=== PATIENT | female | born 1960 | race Caucasian/White ===

== ENCOUNTER 2021-08-08 08:15 | Outpatient (REF) | payer OTHER, SELFPAY ==
--- NOTE | ~2021-08-08 | MM_ITS ---
EXAMINATION: MM SCREENING DIGITAL BREAST TOMOSYNTHESIS, BILATERAL CLINICAL INFORMATION: Screening. Asymptomatic. The lifetime risk of breast cancer based on the Tyrer-Cuzick Model is 6%. COMPARISON: Mammography: 09/01/2016, 01/20/2013 TECHNIQUE: Digital breast tomosynthesis is performed in both the craniocaudal and mediolateral oblique views along with computer-aided detection (CAD). Synthesized 2D images are generated from the tomosynthesis. FINDINGS: There are scattered areas of fibroglandular density (ACR BI-RADS breast composition Category b). There are no significant masses, abnormal calcifications, or other abnormalities. Parenchymal pattern is similar to prior studies. Again, there is biopsy clip marker mid 9:00 right breast. Dermal lesions are again seen overlying the upper left breast and lower inner right breast. No significant changes. MM/MM tomosynthesis screening BI IMPRESSION: No mammographic evidence of malignancy. ASSESSMENT: BI-RADS 2: Benign RECOMMENDATION: Routine annual mammography screening. This patient's information was entered into a reminder system with a target due date for their next mammogram.
== END 2021-08-08 08:16 | disposition home or self-care (01) ==
LOC: HO.MAMMO 08:15
PROVIDERS: PCP Internal Medicine; Visit Provider Internal Medicine
DX: Z12.31 Encounter for screening mammogram for malignant neoplasm of breast (principal)
CPT/HCPCS: 77063; 77067

== ENCOUNTER 2025-01-23 07:45 | Outpatient (REF) | payer MEDICARE, SELFPAY ==
[2025-01-23 09:04] LABS: MANUAL DIFF FLAG NO
[2025-01-23 10:02] LABS: Hematocrit 41.6 % (37.0-47.0); Hemoglobin 13.7 g/dl (12.0-16.0); Imm Gran Abs Auto 0.01 X10*3/uL (0.00-0.03); Imm Gran Pct Auto 0.2 % (0.0-0.4); Lymphocytes Absolute Auto 1.5 X10*3/uL (1.2-4.9); Mean Corpuscular HGB Conc 32.9 g/dl (31.0-35.0); Mean Corpuscular Hemoglobin 31.8 pg (27.0-33.0); Mean Corpuscular Volume 96.5 fL (80.0-98.0); NRBC Abs Auto 0.000 X10*3/uL (0.0-0.012); NRBC Pct Auto 0.0 /100WBC (0.0-0.2); Platelet Count 249 X10*3/uL (160-400); Red Blood Count 4.31 X10*6/uL (4.20-5.50); White Blood Count 4.5 X10*3/uL (4.8-10.8)
[2025-01-23 10:36] LABS: Appearance Urine Clear; Glucose Urine UA Negative (Negative); PH 6.5 (5.0-9.0); Specific Gravity - Urine 1.025 (1.005-1.025)
[2025-01-23 11:37] LABS: Alanine Aminotransferase 22 U/L (0-31); Albumin Level 4.6 g/dL (3.5-5.0); Alkaline Phosphatase 69 U/L (39-117); Anion Gap 12 (12-20); Aspartate Amino Transferase 23 U/L (5-31); Blood Urea Nitrogen 15 mg/dL (9-16); Calcium 9.5 mg/dL (8.4-10.2); Carbon Dioxide 27 mmol/L (22-29); Chloride 108 mmol/L (96-108); Cholesterol 295 mg/dL (<200); Estimated Glomerular Filt Rate > 60; HDL Cholesterol 60 mg/dL (>40); Potassium 4.4 mmol/L (3.3-5.1); Sodium 143 mmol/L (135-145); Total Protein 6.8 g/dL (6.5-8.0); Triglycerides 172 mg/dL (<150)
[2025-01-23 12:02] LABS: Folate 14.4 ng/mL (> or = 4.0); Vitamin B12 396 pg/mL (200-900)
== END 2025-01-23 07:46 | disposition home or self-care (01) ==
LOC: HO.LAB 07:45
PROVIDERS: PCP Internal Medicine
DX: Z00.00 Encounter for general adult medical examination without abnormal findings (principal); I10 Essential (primary) hypertension; E78.5 Hyperlipidemia, unspecified; F41.9 Anxiety disorder, unspecified; E78.00 Pure hypercholesterolemia, unspecified; F33.1 Major depressive disorder, recurrent, moderate; K21.9 Gastro-esophageal reflux disease without esophagitis; R35.89 Other polyuria; Z78.0 Asymptomatic menopausal state; Z13.0 Encounter for screening for diseases of the blood and blood-forming organs and certain disorders involving the immune mechanism; Z13.1 Encounter for screening for diabetes mellitus; Z13.21 Encounter for screening for nutritional disorder; Z13.29 Encounter for screening for other suspected endocrine disorder; Z79.899 Other long term (current) drug therapy; Z86.73 Personal history of transient ischemic attack (TIA), and cerebral infarction without residual deficits
CPT/HCPCS: 36415; 80053; 80061; 81003; 82306; 82607; 82746; 83036; 84443; 85025; 96127; 99202

== ENCOUNTER 2025-01-23 07:45 | Outpatient (AMB) | payer MEDICARE, SELFPAY ==
--- OUTSIDE RECORDS SUMMARY | 2025-01-23 07:49 | XMS_ITS | Clinical Summary ---
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 Not on yuridia e 06/25/2022 Are you concerned about learning? Not on file 06/25/2022 No 06/25/2022 No 06/25/2022 Digital Access Answer Date Recorded No 07/24/2022 No 07/24/2022 No 07/24/2022 Reliable internet access at home? Not on file 07/24/2022 Device with a working camera? Not on file Comments Unknown Sex and Gender Information Value Date Recorded Sex Assigned at Not on file Legal Sex Female 9:49 PM EDT Gender Identity Not on file Sexual Orientation Not on file Last Filed Vital Signs Vital Sign Reading Time Taken Comments Blood Pressure 122/80 07/21/2011 9:59 AM EDT Pulse 60 07/21/2011 9:59 AM EDT Temperature 36.8 C (98.3 F) 07/21/2011 9:59 AM EDT Respiratory Rate - - Oxygen Saturation - - Inhaled Oxygen Concentration - - Weight 81.3 kg (179 lb 3.2 oz) 07/21/2011 9:59 A M EDT Height 160 cm (5' 3 ) 07/21/2011 9:59 AM EDT Body Mass Index 31.74 07/21/2011 9:59 AM EDT Plan of Treatment Health Maintenance Due Date Last Done Comments LIPID PANEL 1959 DEPRESSION SCREENING 1971 SMOKING Hx and SMOKELESS TOB ACCO SCREENING 05/30/1972 HEPATITIS C SCREENING 05/30/1977 HIV ONE-TIME SCREENING (18-6 5 YEARS) 05/30/1977 MAMMOGRAM 1999 COLOGUARD 05/30/2004 COLONOSCOPY 05/30/2004 COLORECTAL CANCER SCREENING 05/30/2004 FIT TEST 05/30/2004 FOBT 05/30/2004 SIGMOIDOSCOPY 05/30/2004 VIRTUAL COLONOSCOPY 05/30/2004 PNEUMOCOCCAL VACCINES (50+ y ears) (1 of 1 - PCV) 05/30/2009 ZOSTER VACCINES (1 of 2) 05/30/2009 OSTEOPOROSIS SCREENING INITI AL (ONE-TIME) 05/30/2024 INFLUENZA VACCINE (#1) 2024 12/25/2018 COVID-19 VACCINE (1 - 2024-2 6 season) 2024 Adult Td,Tdap Booster 02/05/2025 02/05/2015 RSV VACCINE (1 - 1-dose 75+ series) 05/30/2034 HEPATITIS A VACCINES Aged Out No long er eligible based on patient's age to complete this topic HIB VACCINES Aged Out No longer eligi ble based on patient's age to complete this topic MENINGOCOCCAL VACCINES (ACWY) Aged Out No longer eligible based on patient's age to complete this topic MENINGOCOCCAL VACCINES (B) Aged Out N o longer eligible based on patient's age to complete this topic Medical Devices Not on file Insurance [address] [place], [place] [address] [address] [facility] [employer] [facility] [employer]he[employer] [facility]HE[facility] Oz SonotekMAIMONIDES MEDICAL CENTERO [facility]JO[facility] [employer] [facility] Care Teams Felled Seam Operator Relationship Specialty Start Date End Date Rachel Morales MD [address] [place] [id number] PCP - General Internal Medicine 11/08/18 Additional Source Comments The information contained in this document represents components of the legal health record. It is not the complete legal health record.[facility]
--- OUTSIDE RECORDS SUMMARY | 2025-01-23 07:49 | XMS_ITS | Clinical Summary ---
Author Organization [employer] Address [address] [facility] [address] [place] [address] Care Team Providers Care Belt Sander Stone Name Role Phone Unavailable Primary Care Provider Unavailabl e Allergies Active Allergy Reactions Criticality Noted Date Comments Codeine 07/19/2022 Penicillins 07/19/2022 Sulfa Antibiotics 07/19/2022 Medications LORazepam (Ativan) 0.5 MG tablet Take 0.25 mg by mouth 2 times daily. 07/12/2022 Active omeprazole (PriLOSEC) [address] capsule Take 40 mg by mouth in the morning. 06/28/2022 Active buPROPion SR (Wellbutrin SR) 150 MG 12 hr tablet Take 150 mg by mouth 2 times daily. 05/04/2022 Active citalopram (CeleXA) 20 MG tablet Take 20 mg by mouth in the morning. 04/27/2022 Active atorvastatin (Lipitor) 40 MG tablet Take 40 mg by mouth in the morning. 07/10/2022 Active metoprolol succinate XL (Toprol-XL) 50 MG 24 hr tablet Take 50 mg by mouth in the morning. 05/04/2022 Active lisinopril 20 MG tablet Take by mouth in the morning. Active Social History Tobacco Use Types Packs/Day Years Used Date Smoking Tobacco: Never Smokeless Tobacco: Never Tobacco Cessation:Counseling Given: Not Answered Comments Unknown Sex and Gender Information Value Date Recorded Sex Assigned at Female 07/08/2022 10:28 AM EDT Legal Sex Female 10:24 AM EDT Gender Identity Female 07/08/2022 10:28 AM EDT Sexual Orientation Straight 08/04/2022 5: 59 PM EDT Last Filed Vital Signs Vital Sign Reading Time Taken Comments Blood Pressure 118/72 07/19/2022 10:02 AM EDT Pulse 65 07/19/2022 10:02 AM EDT Temperature - - Respiratory Rate - - Oxygen Saturation - - Inhaled Oxygen Concentration - - Weight - - Height - - Body Mass Index - - Plan of Treatment Health Maintenance Due Date Last Done Comments CT Colonography 1959 Colonoscopy 1959 Colorectal Cancer Screening 1959 Dental Prophylaxis 1959 Dental X-Ray: Bitewings 1959 Depression Screening 1959 FIT DNA/Cologuard 1959 FIT 1959 FOBT 1959 SDOH Screening 1959 Sigmoidoscopy 1959 Alcohol/Substance Use Screening 1971 Hepatitis C Screening 05/30/1977 DTaP/Tdap/Td Vaccines (1 - Tdap) 05/30/1978 Pap Smear 05/30/1980 Cervical Cancer Screening 05/30/1989 HPV/Cotest 05/30/1989 Mammogram 1999 Pneumococcal Vaccine: 50+ Years (1 of 1 - PCV) 05/30/2009 Dental Oral Exam 01/20/2023 07/19/2022 Tobacco Screening 07/20/2023 07/19/2022 COVID-19 Vaccine (2 - 2024-2 6 season) 2024 03/30/2021 Influenza Vaccine (#1) 2024 11/20/2019 Dental X-Ray: Full Mouth 07/20/2025 07/19/2022 RSV Patients and Patients Aged 60 years or older (1 - 1-dose 75+ series) 05/30/2034 Zoster Vaccines Completed 01/28/2020, 11/20/2019 HIB Vaccines Aged Out No longer eligi ble based on patient's age to complete this topic HPV Vaccines Aged Out No longer eligi ble based on patient's age to complete this topic Hepatitis A Vaccines Aged Out No long er eligible based on patient's age to complete this topic Hepatitis B Vaccines Aged Out No long er eligible based on patient's age to complete this topic IPV Vaccines Aged Out No longer eligi ble based on patient's age to complete this topic Meningococcal B Vaccine Aged Out No l onger eligible based on patient's age to complete this topic Meningococcal Vaccine Aged Out No kelsey emani eligible based on patient's age to complete this topic RSV under 20 months Aged Out No longe r eligible based on patient's age to complete this topic Rotavirus Vaccines Aged Out No longer eligible based on patient's age to complete this topic Procedures Procedure Name Priority Date/Time Associated Diagnosis Comments PANORAMIC RADIOGRAPHIC IMAGE Routine 07/19/2022 10:00 AM EDT Encounter for dental examination COMPREHENSIVE ORAL EVALUATION - NEW OR ESTABLISHED PATIENT Routine 07/19/2022 10:00 AM EDT from Last 3 Months or Most Recently Relevant to Health [place] [address] [facility] [place] [address]
--- NOTE | 2025-01-23 07:59 | MHC.PC.OV ---
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 Allergies Courtney Allergy (Unknown, Verified 01/23/25 08:12) increased blood pressure codeine (CODEINE) Allergy (Unknown, Verified 01/23/25 08:12) UNKNOWN penicillin V Allergy (Unknown, Verified 01/23/25 08:12) rash, rash/breathing problems Penicillins (PENICILLINS) Allergy (Unknown, Verified 01/23/25 08:12) UNKNOWN Sulfa (Sulfonamide Antibiotics) (SULFA (SULFONAMIDE ANTIBIOTICS)) Allergy (Unknown, Verified 01/23/25 08:12) UNKNOWN, redness escitalopram (Lexapro) Adverse Reaction (Unknown, Verified 01/23/25 08:12) increased blood pressure sulfur Adverse Reaction (Unknown, Verified 01/23/25 08:12) rash CODINE Allergy (Unknown, Uncoded 01/23/25 08:12) redness Codeine Sulfate Adverse Reaction (Unknown, Uncoded 01/23/25 08:12) hives Medication List - Last Reconciled 01/23/25 by Denise Arredondo PA-C aspirin 81 mg PO DAILY cranberry fruit concentrate 450 mg PO DAILY fsmtsnns-mlt-tpsn-FA-vit K-lut 8 mg iron-400 mcg-50 mcg (Centrum Silver Women) 1 tab PO DAILY Tobacco use date assessed: 01/23/25 Fall risk assessment: 2 + Falls in past year Last assessed Fall Risk: 01/23/25 Dental Screening Dental Screen Date: 01/23/25 Did you have a dental visit in the last 12 months?: Yes Did you have a dental problem in the last 6 months where you did not have access to dental care?: No Was dental information given to patient?: 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 Presenting as a new patient to establish care and for medication management. The patient has not seen a provider in about a year due to an insurance change and has not been taking prescribed medications for hypertension, hyperlipidemia, anxiety, and depression during this time. The patient has a history of a stroke approximately 15 years ago, in 2009. The patient reports a significant history of anxiety and depression, stating the patient is not doing well off the medications. The patient has been to the hospital three times in the last year and a half for anxiety, where lorazepam was administered. There is a history of three suicide attempts, with the last one occurring five years ago; the patient denies recent suicidal ideation but reports feeling shaky. mammo: ordered colonoscopy: Cologuard ordered pap smear: referral to maternity nurse [facility] Medical History Suicide attempt Surgical History S/P cholecystectomy Family History Father Substance abuse in family Leukemia Mother No problems noted. Paternal Grandfather Leukemia Other Depression with anxiety High blood pressure High cholesterol Stroke Social History Housing: House Patient Tobacco Use Status: Never used Tobacco e-Cigarette/Vaping Use: Never Used Second Hand Smoke Exposure: No service: No Current occupational status: retired Cognitive needs: No Hearing needs: No Vision needs: No Female Reproductive History Menstrual control method: none Total pregnancies: 2 History of abnormal pap smear: No History of abnormal mammogram: No Questionnaire PHQ-9 Over the last 2 weeks, how often have you been bothered by any of the following problems? 1. Little interest or pleasure in doing things: several days 2. Feeling down, depressed, or hopeless: several days 3. Trouble falling or staying asleep, or sleeping too much: several days 4. Feeling tired or having little energy: several days 5. Poor appetite or overeating: several days 6. Feeling bad about yourself - or that you are a failure or have let yourself or your family down: several days 7. Trouble concentrating on things, such as reading the newspaper or watching television: more than half the days 8. Moving or speaking so slowly that other people could have noticed. Or the opposite - being so fidgety or restless that you have been moving around a lot more than usual: not at all 9. Thoughts that you would be better off or of hurting yourself in some way: not at all Total score: 8 Depression Screening Interpretation: Positive Depression Screening Follow-up: Existing condition and New Medication prescribed Depression Screening Done: Yes 38526 - PHQ-9 Billing: Yes Source: Developed by Drs. Jorge Whitten, Stephanie Riley, Tesfaye Pike and colleagues, with an educational brooke from [employer]. Thrive Questionnaire Date Thrive assessed: 01/23/25 I am a: Patient What is your living situation today?: I have a steady place to live Within the past 12 months, did the food you bought not last and you didn't have the money to get more?: Often true Within the past 12 months, did you worry whether your food would run out before you got money to buy more?: Sometimes True Do you have trouble paying for medicines?: No Do you have trouble getting transportation to medical appointments?: No Do you have trouble paying your heating and electricity bill?: Yes Do you have trouble taking care of your child, family member or friend?: I choose not to answer this question Do you have trouble with day-to-day activities such as bathing, preparing meals, shopping, managing finances, etc.?: No Are you currently unemployed and looking for a job?: No Are you interested in more education?: No Please select the resources that you would like help with: None Currently or been in a relationship where the following occur: I choose not to answer THRIVE Score: 3 AUDIT C Alcohol Use Questionnaire (AUDIT-C) 1. How often do you have a drink containing alcohol?: Never 3. How often do you have six or more drinks on one occasion?: Never Total Score: 0 CHERYLE-7 AMB Questionnaire CHERYLE-7 Date CHERYLE - 7 assessed: 01/23/25 Feeling nervous, anxious, or on edge: 1 = Several days Not being able to stop or control worryin = Several days Worrying too much about different things: 1 = Several days Trouble relaxin = Several days Being so restless that it is hard to sit still: 2 = More than half the days Becoming easily annoyed or irritable: 1 = Several days Feeling afraid as if something awful might happen: 0 = Not at all Total CHERYLE-7 score (0-4 normal; 5-9 mild; 10-14 moderate; 15-21 severe): 7 Source: Developed by Drs. Jorge Whitten, Stephanie Riley, Tesfaye Pike and colleagues, with an educational brooke from [employer]. CHERYLE-7 Assessment Billing CHERYLE-7 Assessment Tool: CHERYLE-7 Assessment 81680 Review of Systems Const Denies body aches, Denies chills, Denies fever(s), Denies headache(s) and Denies poor appetite Eyes Reports no additional complaints ENT Denies dizziness and Denies headache(s) Card Reports chest pain (w/ anxiety ), Denies edema, Denies lightheadedness and Denies dyspnea Resp Denies dyspnea GI Denies abdominal pain, Reports heartburn, Denies nausea and Denies vomiting Reports no additional complaints Musc Reports no additional complaints and Denies abnormal gait Skin/Breast Reports system reviewed and no additional complaints, except as documented Neuro Denies abnormal gait, Denies dizziness and Denies headache(s) Psych Reports no additional complaints Physical exam (Primary Care) Vital Signs: Last Vital Signs Temp 98.1 F 01/23/25 08:02 Pulse 76 01/23/25 08:02 BP 130/80 01/23/25 08:02 Pulse Ox 97 01/23/25 08:02 Oxygen Delivery Method Room Air 01/23/25 08:02 BMI result Body Mass Index 29.6 Tobacco/Smoking Status: Tobacco use Status Tobacco use date assessed 01/23/25 01/23/25 08:11 Patient Tobacco Use Status Never used Tobacco 01/23/25 08:11 e-Cigarette/Vaping Use Never Used 01/23/25 08:11 PHQ-9: PHQ-9 Score PHQ-9: Total score 8 01/23/25 08:11 Depression Screening Interpretation: Positive Depression Screening Follow-up: Existing condition and New Medication prescribed Thrive Assessment: Date of Thrive Assessment Date Thrive assessed 01/23/25 01/23/25 08:11 Currently or been in a relationship where the following occur: I choose not to answer Const General: cooperative, healthy appearing, comfortable and no acute distress Orientation/consciousness: patient oriented x3 HENMT Head: Yes normocephalic Ears: hearing grossly normal bilaterally General nose exam: Normal external nose present Eyes General: appearance normal, both eyes and all related structures Conjunctivae: conjunctivae normal Neck Neck: Yes full ROM and Yes no lymphadenopathy Resp Effort & Inspection: normal respiratory effort Auscultation: clear to auscultation bilaterally, no crackles, no rales, no rhonchi and no wheezes Cardio Rate: regular rate Rhythm: regular rhythm Skin General skin exam: no rashes or lesions noted Neuro General: patient oriented x3 Gait exam (Neuro): Normal gait present Extrem General: Yes normal to inspection, Yes full ROM and No edema Psych Affect: normal affect Attitude: cooperative Insight: Good insight present (Psych) Judgement: Good judgement present (Psych) Coding Level of Care Code New Pt Level 4 (05138) Diagnoses CVA (cerebral vascular accident) I63.9 Primary hypertension I10 Hypertension type: primary hypertension Pure hypercholesterolemia E78.00 Hyperlipidemia type: pure hypercholesterolemia Moderate episode of recurrent major depressive disorder F33.1 Depression Type: major depressive disorder Major depression recurrence: recurrent Active/Remission status: currently active Major depression episode severity: moderate Anxiety F41.9 Gastroesophageal reflux disease without esophagitis K21.9 Esophagitis presence: without esophagitis Additional Codes PHQ-9 - 97326 - PHQ-9 Billing: Yes ([id number]) CHERYLE-7 Assessment Billing - CHERYLE-7 Assessment Tool: CHERYLE-7 Assessment 50395 ([id number]) Assessment & Plan Assessment & Plan (1) CVA (cerebral vascular accident): Comment: 2009 Code(s): I63.9 - Cerebral infarction, unspecified Category: Medical Plan: The patient has a history of a stroke in 2009. Management will focus on controlling blood pressure, cholesterol, and blood sugar to prevent recurrence. The patient reports being discharged from neurological follow-up. (2) Hypertension: Code(s): I10 - Essential (primary) hypertension Category: Medical Qualifiers: Hypertension type: primary hypertension Qualified Code(s): I10 - Essential (primary) hypertension Plan: Patient previously on Lisinopril 20mg and Metoprolol 25mg. Her blood pressure at home fluctuates between 130s-145 plan to restart on Metoprolol at this time and hold Lisinopril. She will continue to monitor blood pressure at home and if exceeds goal of 130/80 to reach out to the office. Avoid salt intake and encourage healthy diet and regular exercise. (3) Hyperlipidemia: Code(s): E78.5 - Hyperlipidemia, unspecified Category: Medical Qualifiers: Hyperlipidemia type: pure hypercholesterolemia Qualified Code(s): E78.00 - Pure hypercholesterolemia, unspecified Plan: Avoid foods that are high in cholesterol such as red meat, fried foods, eggs and baked goods. Triglyceride goal of less than 150 and LDL goal of less than 70. Previously on Atorvastatin 40mg s/p CVA. Plan to obtain blood work and restart on medication. (4) Depression: Code(s): F32.A - Depression, unspecified Category: Medical Qualifiers: Depression Type: major depressive disorder Major depression recurrence: recurrent Active/Remission status: currently active Major depression episode severity: moderate Qualified Code(s): F33.1 - Major depressive disorder, recurrent, moderate Plan: The patient feels unwell off of psychiatric medications and will restart them. The plan is to restart citalopram and bupropion (Wellbutrin) with a spaced-out tapering schedule to minimize side effects. The patient will start citalopram 20 mg by taking half a tablet (10 mg) for one week, then increasing to the full 20 mg tablet. After three weeks on citalopram, the patient will start Wellbutrin on week 4. A 30-day supply of lorazepam will be prescribed for as-needed use during the transition back onto daily medications. Information on counseling services and mental health resources was provided. (5) Anxiety: Code(s): F41.9 - Anxiety disorder, unspecified Category: Medical Plan: See above (6) GERD (gastroesophageal reflux disease): Code(s): K21.9 - Gastro-esophageal reflux disease without esophagitis Category: Medical Qualifiers: Esophagitis presence: without esophagitis Qualified Code(s): K21.9 - Gastro-esophageal reflux disease without esophagitis Plan: Avoid trigger foods such as citrus, tomato products, soda, caffeine, spicy foods and other foods that may be irritating to your stomach. Avoid laying flat 3-4 hours after eating and elevate the head of the bed 30 degrees to prevent acid from moving into the esophagus. Plan to restart on omeprazole Plan I had a detailed discussion with the patient about establishing care after a year-long gap. I explained the plan to restart medications for hypertension, hyperlipidemia, anxiety, depression, and acid reflux. I outlined the specific tapering schedule for restarting citalopram and Wellbutrin to minimize potential side effects, and the patient agreed to this plan. I reviewed the necessary health screenings, including a mammogram, bone density scan, and colon cancer screening with Cologuard, and the patient opted for the Cologuard test. I advised that the patient will receive calls to schedule these appointments and to verify the address for the Cologuard kit. This note was constructed using voice recognition software. While every effort has been made to ensure accuracy and restoration technician, still areas may have been included sometimes these areas may affect the content or meeting of the given symptoms. Total time spent caring for the patient today was 30 minutes. This includes time spent before the visit reviewing the chart, time spent during the visit, and time spent after the visit and documentation. Patient was informed and verbally consented to the use of an ambient scribe for clinic note documentation during this visit. Orders: Orders MM tomosynthesis screening BI Today Z12.31 - Encounter for screening mammogram for malignant neoplasm of breast TSH reflex Free T4 Today Z13.29 - Encounter for screening for other suspected endocrine disorder Vitamin B12 and Folate Today Z13.21 - Encounter for screening for nutritional disorder Lipid Panel Today E78.00 - Pure hypercholesterolemia, unspecified Complete Blood Count Auto Diff Today Z13.0 - Encounter for screening for diseases of the blood and blood-forming organs and certain disorders involving the immune mechanism Hemoglobin A1c Today Z13.1 - Encounter for screening for diabetes mellitus UA CC w/rflx Micro + Cult Today R35.89 - Other polyuria XR DEXA axial skeleton Today Z78.0 - Asymptomatic menopausal state Vitamin D 25-OH Total Today Z13.21 - Encounter for screening for nutritional disorder Comprehensive Met. Panel Today Z00.00 - Encounter for general adult medical examination without abnormal findings Referrals FUR POINTER Referral Z12.4 - Encounter for screening for malignant neoplasm of cervix Cologuard Test Z12.11 - Encounter for screening for malignant neoplasm of colon, Z12.12 - Encounter for screening for malignant neoplasm of rectum Medications: New atorvastatin (Lipitor) 40 mg PO DAILY 90 tabs 0RF metoprolol succinate ER 25 mg PO DAILY 90 tabs 0RF omeprazole 40 mg PO DAILY 90 caps 0RF lorazepam 0.5 mg PO DAILY PRN 28 tabs 0RF anxiety bupropion HCl SR (Wellbutrin SR) 150 mg PO QAM 90 tabs 0RF citalopram 20 mg PO DAILY 90 tabs 0RF
[2025-01-23 08:02] VITALS: BP 130/80; PULSE 76; TEMP 36.7; O2SAT 97; BMI 29.6
== END 2025-01-23 08:43 | disposition home or self-care (01) ==
DX: I63.9 Cerebral infarction, unspecified (principal); I10 Essential (primary) hypertension; E78.00 Pure hypercholesterolemia, unspecified; F33.1 Major depressive disorder, recurrent, moderate; F41.9 Anxiety disorder, unspecified; K21.9 Gastro-esophageal reflux disease without esophagitis